=== PATIENT | female | born 1975 | race Caucasian/White ===

== ENCOUNTER → 2017-10-14 | Outpatient (CLI) | payer OTHER ==
--- NOTE | 2017-10-15 07:59 | MM ---
Reason for exam: screening (asymptomatic). Last mammogram was performed 1 year ago. History: Patient is nulliparous. Family history of breast cancer in mother at age 62. Taking hormonal contraceptives for 2 years. Physical Findings: A clinical breast exam by your physician is recommended on an annual basis and results should be correlated with mammographic findings. MG Screening Mammo w CAD Bilateral CC and MLO view(s) were taken. Prior study comparison: October 02, 2016, bilateral MG screening mammo w CAD. July 02, 2015, bilateral MG screening mammo w CAD. The breast tissue is heterogeneously dense. This may lower the sensitivity of mammography. No significant changes when compared with prior studies. ASSESSMENT: Benign, BI-RAD 2 RECOMMENDATION: Routine screening mammogram of both breasts in 1 year.
== END | disposition home or self-care (01) ==
LOC: RADMAMWWP 08:28
PROVIDERS: ATTEND Obstetrics & Gynecology
DX: Z12.31 Encounter for screening mammogram for malignant neoplasm of breast (principal)
CPT/HCPCS: 77067

== ENCOUNTER 2018-05-06 07:59 | Inpatient (IN) | payer OTHER ==
[2018-05-06 08:25] LABS: Glucose,Whole Blood 380 mg/dL (75-99)
[2018-05-06] MEDS ORDERED: PANTOPRAZOLE 40 MG/10 ML VIAL IVP STA (08:25)
[2018-05-06] MEDS ORDERED: SODIUM CHLORIDE 0.9% 1,000 ML IV STA ×2 (08:25)
[2018-05-06] MEDS ORDERED: ONDANSETRON 4 MG/2 ML VIAL IVP STA (08:25)
[2018-05-06] MEDS ORDERED: INSULIN REGULAR 100 UNIT/ML VIAL IV ONE (08:28)
--- NOTE | 2018-05-06 08:28 | ED ---
Nausea/Vomiting/Diarrhea HPI - General Source: patient, RN notes reviewed, old records reviewed Mode of arrival: ambulatory Limitations: no limitations <Doretha Godinez - Last Filed: 05/06/18 09:58> <Julián Rodrigues - Last Filed: 05/06/18 10:06> - General Chief complaint: Nausea/Vomiting/Diarrhea Stated complaint: vomiting Time Seen by Provider: 05/06/18 08:20 - History of Present Illness Initial comments: This is a 43-year-old female presents emergency Department chief complaint of nausea and vomiting onset at 1:00 this morning. Patient reports that she was feeling well prior to this onset. Patient denies any abdominal pain. She does have some acid reflux pain due to the amount of vomiting. Patient is a type I diabetic, on insulin pump. She has not had her medications yet today due to nausea and vomiting. Patient states that she's had no changes in stools or urine. She denies any specific abdominal pain. Patient states that she had admitted the past for DKA when this occurred. Patient states that she try to manage her symptoms prior to that starting. (Doretha Godinez) - Related Data Home Medications Medication Instructions Recorded Confirmed Escitalopram [Lexapro] 10 mg PO DAILY 09/01/16 05/06/18 INSULIN LISPRO (humaLOG) [humaLOG] See Protocol SQ-PUMP CONTINUOUS 09/01/16 Norethindrone-E.estradiol-Iron 1 tab PO DAILY 09/01/16 05/06/18 [Minastrin 24 Fe Chewable Tab] Atorvastatin Calcium [Lipitor] 10 mg PO HS 11/06/17 05/06/18 Lisinopril [Prinivil] 5 mg PO DAILY 05/06/18 05/06/18 Allergies Allergy/AdvReac Type Severity Reaction Status Date / Time No Known Allergies Allergy Verified 05/06/18 08:50 Review of Systems ROS Other: All systems not noted in ROS Statement are negative. <Doretha Godinez - Last Filed: 05/06/18 09:58> ROS Other: All systems not noted in ROS Statement are negative. <Julián Rodrigues - Last Filed: 05/06/18 10:06> ROS Statement: Those systems with pertinent positive or pertinent negative responses have been documented in the HPI. Past Medical History Past Medical History: Asthma, Diabetes Mellitus Additional Past Medical History / Comment(s): insulin pump History of Any Multi-Drug Resistant Organisms: None Reported Past Surgical History: No Surgical Hx Reported Past Anesthesia/Blood Transfusion Reactions: No Reported Reaction Past Psychological History: Anxiety, Depression Smoking Status: Never smoker Past Alcohol Use History: None Reported Past Drug Use History: None Reported <Doretha Godinez - Last Filed: 05/06/18 09:58> General Exam Limitations: no limitations General appearance: alert, in no apparent distress Head exam: Present: atraumatic, normocephalic, normal inspection Eye exam: Present: normal appearance, PERRL, EOMI. Absent: scleral icterus, conjunctival injection, periorbital swelling ENT exam: Present: normal exam, mucous membranes moist Neck exam: Present: normal inspection. Absent: tenderness, meningismus, lymphadenopathy Respiratory exam: Present: normal lung sounds bilaterally. Absent: respiratory distress, wheezes, rales, rhonchi, stridor Cardiovascular Exam: Present: regular rate, normal rhythm, normal heart sounds. Absent: systolic murmur, diastolic murmur, rubs, gallop, clicks GI/Abdominal exam: Present: soft, normal bowel sounds. Absent: distended, tenderness, guarding, rebound, rigid Extremities exam: Present: normal inspection, full ROM, normal capillary refill. Absent: tenderness, pedal edema, joint swelling, calf tenderness Back exam: Present: normal inspection Neurological exam: Present: alert, oriented X3, CN II-XII intact Psychiatric exam: Present: normal affect, normal mood Skin exam: Present: warm, dry, intact, normal color. Absent: rash <Doretha Godinez - Last Filed: 05/06/18 09:58> <Julián Rodrigues - Last Filed: 05/06/18 10:06> - General Exam Comments Initial Comments: Pleasant 43 year old female, no acute distress. (Doretha Godinez) Vital Signs 05/06/18 05/06/18 08:13 09:17 Temperature 98.1 F 98.1 F Pulse Rate 128 H 100 Respiratory 20 16 Rate Blood Pressure 147/90 126/61 O2 Sat by Pulse 99 100 Oximetry Medical Decision Making - Lab Data Result diagrams: 05/06/18 08:35 05/06/18 08:35 <Doretha Godinez - Last Filed: 05/06/18 09:58> - Lab Data Result diagrams: 05/06/18 08:35 05/06/18 08:35 <Julián Rodrigues - Last Filed: 05/06/18 10:06> - Medical Decision Making This is a 43-year-old female with chief complaint of vomiting onset at 1 AM. No abdominal pain. Patient states diabetic. Concern for DKA. At this time Patient is in diabetic ketoacidosis. Patient's CO2 was 8. Glucose was 380 upon arrival. Given an initial insulin bolus. Patient's acetone positive for plus ketones and glucose. Patient was given 1 L bolus at this time. At this time we'll start the Patient on take a protocol with insulin bolus. She states that she's feeling better after initial dose of fluids at this time. I discussed we'll keep her for further evaluation. Patient agrees to admission. ( Doretha Godinez) Patient reevaluated by myself, Dr. Rodrigues. Patient resting comfortably in bed. Abdomen soft and nontender. Patient is tolerating ice chips. Patient updated on results and plan. Case was also discussed with Dr. Lou, covering for Dr. ceballos, who will admit for Dr. Shelton. I reviewed and agree with PA findings. This includes all diagnostic interpretations and treatment plan. (Julián Rodrigues) - Lab Data Lab Results 05/06/18 05/06/18 05/06/18 Range/Units 08:23 08:35 08:35 WBC 16.1 H (3.8-10.6) k/uL RBC 5.24 (3.80-5.40) m/uL Hgb 14.2 (11.4-16.0) gm/dL Hct 46.6 H (34.0-46.0) % MCV 88.8 (80.0-100.0) fL MCH 27.0 (25.0-35.0) pg MCHC 30.4 L (31.0-37.0) g/dL RDW 12.8 (11.5-15.5) % Plt Count 377 (150-450) k/uL Neutrophils % 95 % Lymphocytes % 3 % Monocytes % 1 % Eosinophils % 0 % Basophils % 0 % Neutrophils # 15.3 H (1.3-7.7) k/uL Lymphocytes # 0.5 L (1.0-4.8) k/uL Monocytes # 0.1 (0-1.0) k/uL Eosinophils # 0.0 (0-0.7) k/uL Basophils # 0.0 (0-0.2) k/uL Hypochromasia Moderate Sodium 140 (137-145) mmol/L Potassium 5.1 (3.5-5.1) mmol/L Chloride 106 (98-107) mmol/L Carbon Dioxide 8 L* (22-30) mmol/L Anion Gap 26 mmol/L BUN 14 (7-17) mg/dL Creatinine 0.81 (0.52-1.04) mg/dL Est GFR (CKD-EPI)AfAm >90 (>60 ml/min/1.73 sqM) Est GFR (CKD-EPI)NonAf 90 (>60 ml/min/1.73 sqM) Glucose 451 H* (74-99) mg/dL POC Glucose (mg/dL) 380 H (75-99) mg/dL POC Glu Property Valuer ID Petitpren, Cris Calcium 9.1 (8.4-10.2) mg/dL Total Bilirubin 1.0 (0.2-1.3) mg/dL AST 31 (14-36) U/L ALT 38 (9-52) U/L Alkaline Phosphatase 93 (38-126) U/L Total Protein 8.0 (6.3-8.2) g/dL Albumin 5.0 (3.5-5.0) g/dL Amylase 48 (30-110) U/L Lipase 46 (23-300) U/L Urine Color Urine Appearance (Clear) Urine pH (5.0-8.0) Ur Specific Busy (1.001-1.035) Urine Protein (Negative) Urine Glucose (UA) (Negative) Urine Ketones (Negative) Urine Blood (Negative) Urine Nitrite (Negative) Urine Bilirubin (Negative) Urine Urobilinogen (<2.0) mg/dL Ur Leukocyte Esterase (Negative) Acetone, Qual Positive (Negative) 05/06/18 05/06/18 Range/Units 08:35 09:46 WBC (3.8-10.6) k/uL RBC (3.80-5.40) m/uL Hgb (11.4-16.0) gm/dL Hct (34.0-46.0) % MCV (80.0-100.0) fL MCH (25.0-35.0) pg MCHC (31.0-37.0) g/dL RDW (11.5-15.5) % Plt Count (150-450) k/uL Neutrophils % % Lymphocytes % % Monocytes % % Eosinophils % % Basophils % % Neutrophils # (1.3-7.7) k/uL Lymphocytes # (1.0-4.8) k/uL Monocytes # (0-1.0) k/uL Eosinophils # (0-0.7) k/uL Basophils # (0-0.2) k/uL Hypochromasia Sodium (137-145) mmol/L Potassium (3.5-5.1) mmol/L Chloride (98-107) mmol/L Carbon Dioxide (22-30) mmol/L Anion Gap mmol/L BUN (7-17) mg/dL Creatinine (0.52-1.04) mg/dL Est GFR (CKD-EPI)AfAm (>60 ml/min/1.73 sqM) Est GFR (CKD-EPI)NonAf (>60 ml/min/1.73 sqM) Glucose (74-99) mg/dL POC Glucose (mg/dL) 349 H (75-99) mg/dL POC Glu Property Valuer ID Cris Alcaraz Calcium (8.4-10.2) mg/dL Total Bilirubin (0.2-1.3) mg/dL AST (14-36) U/L ALT (9-52) U/L Alkaline Phosphatase (38-126) U/L Total Protein (6.3-8.2) g/dL Albumin (3.5-5.0) g/dL Amylase (30-110) U/L Lipase (23-300) U/L Urine Color Colorless Urine Appearance Clear (Clear) Urine pH 5.0 (5.0-8.0) Ur Specific Busy 1.019 (1.001-1.035) Urine Protein Trace H (Negative) Urine Glucose (UA) 4+ H (Negative) Urine Ketones 4+ H (Negative) Urine Blood Negative (Negative) Urine Nitrite Negative (Negative) Urine Bilirubin Negative (Negative) Urine Urobilinogen <2.0 (<2.0) mg/dL Ur Leukocyte Esterase Negative (Negative) Acetone, Qual (Negative) Disposition Is patient prescribed a controlled substance at d/c from ED?: No Time of Disposition: 09:59 <Doretha Godinez - Last Filed: 05/06/18 09:58> <Julián Rodrigues - Last Filed: 05/06/18 10:06> Clinical Impression: DKA (diabetic ketoacidoses) Disposition: ADMITTED IP TO THIS HOSP Condition: Stable Referrals: Braulio Wills MD [Primary Care Provider] - 1-2 days
[2018-05-06 08:55] LABS: Appearance,Urine Clear (Clear); Bilirubin,Urine Negative (Negative); Blood,Urine Negative (Negative); Color,Urine Colorless; Glucose,Urine (UA) 4+ (Negative); Leukocyte Esterase,Urine Negative (Negative); Nitrite,Urine Negative (Negative); Protein,Urine Trace (Negative); Specific Gravity,Urine 1.019 (1.001-1.035); Urobilinogen,Urine <2.0 mg/dL (<2.0)
[2018-05-06 09:11] LABS: ALT 38 U/L (9-52); AST 31 U/L (14-36); Alkaline Phosphatase 93 U/L (38-126); Amylase 48 U/L (30-110); Blood Urea Nitrogen 14 mg/dL (7-17); Calcium 9.1 mg/dL (8.4-10.2); Chloride 106 mmol/L (98-107); Lipase 46 U/L (23-300); Potassium 5.1 mmol/L (3.5-5.1); Sodium 140 mmol/L (137-145)
[2018-05-06 09:15] LABS: Basophils % (A) 0 %; Eosinophils % (A) 0 %; HCT 46.6 % (34.0-46.0); HGB 14.2 gm/dL (11.4-16.0); Hypochromasia Moderate; Lymphocytes # (A) 0.5 k/uL (1.0-4.8); Lymphocytes % (A) 3 %; MCHC 30.4 g/dL (31.0-37.0); MCV 88.8 fL (80.0-100.0); Mean Platelet Volume 7.3; Monocytes # (A) 0.1 k/uL (0-1.0); Monocytes % (A) 1 %; Neutrophils # (A) 15.3 k/uL (1.3-7.7); Neutrophils % (A) 95 %; Platelet Count 377 k/uL (150-450); RBC 5.24 m/uL (3.80-5.40); RDW 12.8 % (11.5-15.5); WBC 16.1 k/uL (3.8-10.6)
[2018-05-06 09:16] LABS: Anion Gap 26 mmol/L
[2018-05-06 09:43] LABS: Carbon Dioxide 8 mmol/L (22-30); Glucose 451 mg/dL (74-99); Ketones,Urine 4+ (Negative)
[2018-05-06 09:47] LABS: Glucose,Whole Blood 349 mg/dL (75-99)
[2018-05-06] MEDS: INSULIN REGULAR 100 UNIT in SODIUM CHLORIDE 0.9% 100 ML IV SCH ×2 (09:54→17:13)
[2018-05-06] MEDS: SODIUM CHLORIDE 0.9% 1,000 ML IV SCH ×2 (09:57→14:00)
[2018-05-06] MEDS ORDERED: ONDANSETRON 4 MG in SODIUM CHLORIDE 0.9% 50 ML IVPB PRN (10:32)
[2018-05-06] MEDS ORDERED: Magnesium Replacement Protocol 1 EACH MISC MISCELLANE PRN (10:33)
[2018-05-06] MEDS ORDERED: Potassium Replacement Protocol 1 EACH MISC MISCELLANE PRN (10:33)
[2018-05-06] MEDS ORDERED: ONDANSETRON 4 MG/2 ML VIAL IVP PRN (10:38)
--- NOTE | 2018-05-06 10:55 | XR ---
EXAMINATION TYPE: XR chest 2V DATE OF EXAM: 05/06/2018 COMPARISON: 09/01/2016 TECHNIQUE: PA and lateral views submitted. HISTORY: Leukocytosis FINDINGS: No pleural effusion or pneumothorax. No overt failure. Hypertrophic and degenerative change of the sp ine. Patchy perihilar changes are seen. IMPRESSION: 1. Patchy perihilar changes may been the basis of a pneumonitis. Correlate clinically.
[2018-05-06 11:01] LABS: ABG Base Excess -21.8 mmol/L; ABG Oxygen Saturation 97.4 % (94-97); ABG PO2 104 mmHg (83-108); ABG TCO2 8 mmol/L (19-24)
--- NOTE | 2018-05-06 11:01 | XR ---
EXAMINATION TYPE: XR KUB DATE OF EXAM: 05/06/2018 COMPARISON: 09/01/2016 HISTORY: leukoctyosis TECHNIQUE: One view abdominal series FINDINGS: The osseous structures are intact. The bowel gas pattern is nonspecific. Lung bases are clear. IMPRESSION: 1. Nonspecific abdomen.
[2018-05-06 11:06] LABS: ABG PH 7.16 (7.35-7.45)
[2018-05-06 11:07] LABS: Glucose,Whole Blood 280 mg/dL (75-99)
[2018-05-06 11:07] LABS: ABG HCO3 7 mmol/L (21-25); ABG PCO2 20 mmHg (35-45)
[2018-05-06] MEDS: D5-0.45% NACL WITH KCL 20MEQ/L 1,000 ML IV SCH ×2 (11:26→19:03)
--- NOTE | 2018-05-06 12:00 | P.HPIM ---
History of Present Illness H&P Date: 05/06/18 Chief Complaint: Nausea and vomiting and elevated blood sugars The patient is a 43-year-old female with a past medical history of insulin-dependent type 1 diabetes who is followed by Dr. Wills in clinic who presents to the ER via private vehicle we'll with complaints of nausea vomiting. Apparently the patient make an having symptoms of nausea prior to dinner with the last evening, during the day she had noticed increased blood sugars in the 300 range, which is usually typical for her. Throughout the night her nausea worsened and she began having episodes of non-bloody bilious emesis and was not able to keep down any liquids or her medications. She denies any abdominal pain, chest pain shortness of breath cough, diarrhea, constipation, dysuria, or frequency. The patient then subsequently presented here after realizing that her symptoms were similar to her last presentation for DKA in August 2016. She reports her last A1c at around 8.3. The patient otherwise has no other complaints. In the ER the patient received a comprehensive workup, with grossly abnormal labs leukocytosis of 16.6, blood sugar of 451, serum bicarb of 8, and a urinalysis suggesting ketonuria 4+. ABG with a pH of 7.16/pCO2 of 20/pO2 104/ HCO 7 with positive acetone. She was given a bolus of normal saline and started on insulin drip per protocol and recommended for admission for DKA Review of Systems All other 12 point review systems negative except per HPI Past Medical History Past Medical History: Asthma, Diabetes Mellitus Additional Past Medical History / Comment(s): insulin pump History of Any Multi-Drug Resistant Organisms: None Reported Past Surgical History: No Surgical Hx Reported Past Anesthesia/Blood Transfusion Reactions: No Reported Reaction Past Psychological History: Anxiety, Depression Smoking Status: Never smoker Past Alcohol Use History: None Reported Past Drug Use History: None Reported Medications and Allergies Home Medications Medication Instructions Recorded Confirmed Type Escitalopram [Lexapro] 10 mg PO DAILY 09/01/16 05/06/18 History INSULIN LISPRO (humaLOG) [humaLOG] See Protocol SQ-PUMP CONTINUOUS 09/01/16 History Norethindrone-E.estradiol-Iron 1 tab PO DAILY 09/01/16 05/06/18 History [Minastrin 24 Fe Chewable Tab] Atorvastatin Calcium [Lipitor] 10 mg PO HS 11/06/17 05/06/18 History Lisinopril [Prinivil] 5 mg PO DAILY 05/06/18 05/06/18 History Allergies Allergy/AdvReac Type Severity Reaction Status Date / Time No Known Allergies Allergy Verified 05/06/18 08:50 Physical Exam Vitals: Vital Signs Temp Pulse Resp BP Pulse Ox 05/06/18 10:17 99 18 122/66 100 05/06/18 09:17 98.1 F 100 16 126/61 100 05/06/18 08:13 98.1 F 128 H 20 147/90 99 Intake and Output 05/05/18 05/06/18 05/06/18 22:59 06:59 14:59 Other: Weight 78.018 kg Constitutional: No acute distress, conversant, pleasant Eyes: Anicteric sclerae, moist conjunctiva, no lid-lag, PERRLA ENMT: NC/AT,Oropharynx clear, no erythema, exudates, dry mucous membranes Neck:Supple, FROM, no masses, or JVD, No carotid bruits; No thyromegaly Lungs: Clear to auscultation, Clear to percussion, Normal respiratory effort, no accessory muscle use Cardiovascular: Tachycardic regular rhythm, no murmurs rubs or gallops no peripheral edema Abdominal: Soft Nontender, nom distended, no guarding, no rebound or rigidity, Normoactive bowel sounds No hepatomegaly, No splenomegaly, No palpable mass No abdominal wall hernia noted Skin: Normal temperature, tone, texture, turgor, No induration No subcutaneous nodules, No rash, lesions, No ulcers Extremities:No digital cyanosis No clubbing, Pedal pulses intact and symmetrical Radial pulses intact and symmetrical Normal gait and station, No calf tenderness Psychiatric: Alert and oriented to person, place and time, Appropriate affect Intact judgement Neuro: Muscles Strength 5/5 in all 4 extremities, Sensation to light touch grossly present throughout, Cranial nerves II-XII grossly intact. No focal sensory deficits Results CBC & Chem 7: 05/06/18 08:35 05/06/18 08:35 Labs: Abnormal Lab Results - Last 24 Hours (Table) 05/06/18 05/06/18 05/06/18 Range/Units 08:23 08:35 08:35 WBC 16.1 H (3.8-10.6) k/uL Hct 46.6 H (34.0-46.0) % MCHC 30.4 L (31.0-37.0) g/dL Neutrophils # 15.3 H (1.3-7.7) k/uL Lymphocytes # 0.5 L (1.0-4.8) k/uL ABG pH (7.35-7.45) ABG pCO2 (35-45) mmHg ABG HCO3 (21-25) mmol/L ABG Total CO2 (19-24) mmol/L ABG O2 Saturation (94-97) % Carbon Dioxide 8 L* (22-30) mmol/L Glucose 451 H* (74-99) mg/dL POC Glucose (mg/dL) 380 H (75-99) mg/dL Urine Protein (Negative) Urine Glucose (UA) (Negative) Urine Ketones (Negative) 05/06/18 05/06/18 05/06/18 Range/Units 08:35 09:46 10:45 WBC (3.8-10.6) k/uL Hct (34.0-46.0) % MCHC (31.0-37.0) g/dL Neutrophils # (1.3-7.7) k/uL Lymphocytes # (1.0-4.8) k/uL ABG pH 7.16 L* (7.35-7.45) ABG pCO2 20 L* (35-45) mmHg ABG HCO3 7 L* (21-25) mmol/L ABG Total CO2 8 L (19-24) mmol/L ABG O2 Saturation 97.4 H (94-97) % Carbon Dioxide (22-30) mmol/L Glucose (74-99) mg/dL POC Glucose (mg/dL) 349 H (75-99) mg/dL Urine Protein Trace H (Negative) Urine Glucose (UA) 4+ H (Negative) Urine Ketones 4+ H (Negative) 05/06/18 Range/Units 11:06 WBC (3.8-10.6) k/uL Hct (34.0-46.0) % MCHC (31.0-37.0) g/dL Neutrophils # (1.3-7.7) k/uL Lymphocytes # (1.0-4.8) k/uL ABG pH (7.35-7.45) ABG pCO2 (35-45) mmHg ABG HCO3 (21-25) mmol/L ABG Total CO2 (19-24) mmol/L ABG O2 Saturation (94-97) % Carbon Dioxide (22-30) mmol/L Glucose (74-99) mg/dL POC Glucose (mg/dL) 280 H (75-99) mg/dL Urine Protein (Negative) Urine Glucose (UA) (Negative) Urine Ketones (Negative) Assessment and Plan (1) DKA (diabetic ketoacidoses) Current Visit: Yes Status: Acute Code(s): E13.10 - OTH DIABETES MELLITUS WITH KETOACIDOSIS WITHOUT COMA SNOMED Code(s): 375227006 (2) Increased anion gap metabolic acidosis Current Visit: Yes Status: Acute Code(s): E87.2 - ACIDOSIS SNOMED Code(s) : 11776536 (3) Intractable nausea and vomiting Current Visit: Yes Status: Acute Code(s): R11.2 - NAUSEA WITH VOMITING, UNSPECIFIED SNOMED Code(s): 036388545 (4) Leukocytosis Current Visit: Yes Status: Acute Code(s): D72.829 - ELEVATED WHITE BLOOD CELL COUNT, UNSPECIFIED SNOMED Code(s): 858718804 (5) Essential hypertension Current Visit: Yes Status: Acute Code(s): I10 - ESSENTIAL (PRIMARY) HYPERTENSION SNOMED Code(s): 74488019 Plan: The patient is admitted [facility] with DKA anticipate a greater than 2 midnight stay secondary to DKA she started on, in house protocol with IV fluids and insulin drip. We'll continue to check her electrolytes for resolution of anion gap. The precipitant of DKA unknown at this time we'll further workup with a chest x-ray KUB, urinalysis negative for any suggestion of UTI. We'll check her A1c, Consult diabetic education. We'll treat symptomatically with Zofran for her nausea And continue to hold her other medications that she is currently nothing by mouth. Patient does have a leukocytosis that is likely reactive secondary to her DKA , she is afebrile , will check a blood culture and continue to follow her clinical course.
[2018-05-06] MEDS ORDERED: METOCLOPRAMIDE 5 MG/ML 2 ML VIAL IVP PRN (12:06)
[2018-05-06 12:21] LABS: Glucose,Whole Blood 237 mg/dL (75-99)
[2018-05-06 12:58] LABS: Anion Gap 20 mmol/L; Blood Urea Nitrogen 14 mg/dL (7-17); Chloride 111 mmol/L (98-107); Glucose 241 mg/dL (74-99); Potassium 4.9 mmol/L (3.5-5.1); Sodium 140 mmol/L (137-145)
[2018-05-06 13:10] LABS: Glucose,Whole Blood 252 mg/dL (75-99)
[2018-05-06 13:18] LABS: Carbon Dioxide 9 mmol/L (22-30)
[2018-05-06 14:25] LABS: Glucose,Whole Blood 217 mg/dL (75-99)
[2018-05-06 15:25] LABS: Glucose,Whole Blood 221 mg/dL (75-99)
[2018-05-06 16:13] LABS: Glucose,Whole Blood 185 mg/dL (75-99)
[2018-05-06 16:39] LABS: Anion Gap 13 mmol/L; Blood Urea Nitrogen 14 mg/dL (7-17); Carbon Dioxide 14 mmol/L (22-30); Chloride 111 mmol/L (98-107); Glucose 168 mg/dL (74-99); Sodium 138 mmol/L (137-145)
[2018-05-06 17:29] LABS: Glucose,Whole Blood 148 mg/dL (75-99)
[2018-05-06 18:18] LABS: Glucose,Whole Blood 126 mg/dL (75-99)
[2018-05-06 19:07] LABS: Glucose,Whole Blood 108 mg/dL (75-99)
[2018-05-06 20:23] LABS: Anion Gap 8 mmol/L; Blood Urea Nitrogen 14 mg/dL (7-17); Carbon Dioxide 17 mmol/L (22-30); Chloride 110 mmol/L (98-107); Glucose 126 mg/dL (74-99); Potassium 4.7 mmol/L (3.5-5.1); Sodium 135 mmol/L (137-145)
[2018-05-06 20:40] LABS: Hemoglobin A1C 8.4 % (4.0-6.0)
[2018-05-06 20:55] LABS: Glucose,Whole Blood 145 mg/dL (75-99)
[2018-05-06] MEDS ORDERED: INSULIN NPH 300 UNIT/3 ML VIAL SQ ONE (21:05)
[2018-05-06] MEDS ORDERED: INSULIN DETEMIR 100 UNIT/ML 10 ML VIAL SQ SCH (21:45)
[2018-05-07 00:52] VITALS: RESP 16
[2018-05-07 00:56] LABS: Anion Gap 13 mmol/L; Blood Urea Nitrogen 16 mg/dL (7-17); Carbon Dioxide 15 mmol/L (22-30); Chloride 105 mmol/L (98-107); Glucose 355 mg/dL (74-99); Potassium 5.1 mmol/L (3.5-5.1); Sodium 133 mmol/L (137-145)
[2018-05-07 05:46] LABS: Glucose,Whole Blood 242 mg/dL (75-99)
[2018-05-07 06:41] LABS: Anion Gap 9 mmol/L; Blood Urea Nitrogen 16 mg/dL (7-17); Carbon Dioxide 17 mmol/L (22-30); Chloride 110 mmol/L (98-107); Glucose 260 mg/dL (74-99); Potassium 4.9 mmol/L (3.5-5.1); Sodium 136 mmol/L (137-145)
[2018-05-07] MEDS: INSULIN ASPART 100 UNIT/ML 1 ML 10 ML VIAL SQ SCH ×4 (07:13→12:19)
[2018-05-07] MEDS ORDERED: PANTOPRAZOLE 40 MG/10 ML VIAL IVP SCH (09:00)
[2018-05-07 09:23] VITALS: TEMP 98.2
[2018-05-07 11:30] LABS: Glucose,Whole Blood 106 mg/dL (75-99)
[2018-05-07 11:45] VITALS: BMI 30.1
[2018-05-07 12:44] VITALS: BP 128/76; PULSE 95
--- NOTE | 2018-05-07 14:01 | P.DS ---
Providers Date of admission: 05/06/18 10:06 Expected date of discharge: 05/07/18 Attending physician: tOto Lou MD Primary care physician: Braulio Wills - Discharge Diagnosis(es) (1) DKA (diabetic ketoacidoses) Current Visit: Yes Status: Acute (2) Increased anion gap metabolic acidosis Current Visit: Yes Status: Acute (3) Intractable nausea and vomiting Current Visit: Yes Status: Acute (4) Leukocytosis Current Visit: Yes Status: Acute (5) Essential hypertension Current Visit: Yes Status: Acute Hospital Course: The patient is a 43-year-old female that was admitted with DKA precipitant unknown after procedure she presented with intractable nausea and vomiting and elevated blood sugars, ketonuria, and anion gap metabolic acidosis. She was started on in house DKA protocol and started on fluids, with insulin drip. She was treated supportively with Reglan and Zofran for nausea and vomiting. She had a noted leukocytosis that was an acute phase reactant which resolved without need for antibiotics, the patient remained afebrile throughout her hospitalization. Her urinalysis was negative for any suggestion of an UTI, chest x-ray suggested possible pneumonitis over the patient was asymptomatic, and a KUB of the abdomen showed was otherwise normal. When her anion gap resolved she was transitioned back to her insulin pump, on day of discharge the patient felt great denied any nausea and vomiting and was tolerating a diabetic diet without any significant nausea. She was subsequently discharged home and told to follow-up with her PCP Dr. Wills and she has an appointment in 7 days. Of note her hemoglobin A1c was 8.3. She was subsequently discharged home in stable condition. This discharge process took approximately 35 minutes Patient Condition at Discharge: Stable Plan - Discharge Summary Discharge Rx Participant: Yes New Discharge Prescriptions: Continue INSULIN LISPRO (humaLOG) [humaLOG] See Protocol SQ-PUMP CONTINUOUS Norethindrone-E.estradiol-Iron [Minastrin 24 Fe Chewable Tab] 1 tab PO DAILY Escitalopram [Lexapro] 10 mg PO DAILY Atorvastatin Calcium [Lipitor] 10 mg PO HS Lisinopril [Prinivil] 5 mg PO DAILY Discharge Medication List Escitalopram [Lexapro] 10 mg PO DAILY 09/01/16 [History] INSULIN LISPRO (humaLOG) [humaLOG] See Protocol SQ-PUMP CONTINUOUS 09/01/16 [ History] Norethindrone-E.estradiol-Iron [Minastrin 24 Fe Chewable Tab] 1 tab PO DAILY [History] Atorvastatin Calcium [Lipitor] 10 mg PO HS 11/06/17 [History] Lisinopril [Prinivil] 5 mg PO DAILY 05/06/18 [History] Follow up Appointment(s)/Referral(s): Braulio Wills MD [Primary Care Provider] - 05/14/18 5:00 pm (Thursday) Discharge Disposition: HOME SELF-CARE
[2018-05-08] MEDS ORDERED: PANTOPRAZOLE 40 MG TABLET PO SCH (09:00)
== END 2018-05-07 15:24 | disposition home or self-care (01) | DRG 639 ==
LOC: EC 07:59 → 6SEL 10:06
PROVIDERS: ADMIT Family Medicine; ATTEND Family Medicine
DX: E10.10 Type 1 diabetes mellitus with ketoacidosis without coma (principal); D72.829 Elevated white blood cell count, unspecified; F32.9 Major depressive disorder, single episode, unspecified; F41.9 Anxiety disorder, unspecified; I10 Essential (primary) hypertension; Z79.4 Long term (current) use of insulin; Z79.899 Other long term (current) drug therapy; Z96.41 Presence of insulin pump (external) (internal)
CPT/HCPCS: 36415; 36600; 71046; 74018; 80051; 80053; 81003; 82009; 82150; 82565; 82805; 82947; 83036; 83690; 84484; 84520; 85025; 87040; 96361; 96374; 96375; 99285

== ENCOUNTER → 2019-05-24 | Outpatient (CLI) | payer OTHER ==
--- NOTE | 2019-05-26 12:21 | MM ---
Reason for exam: screening (asymptomatic). Last mammogram was performed 1 year and 7 months ago. History: Patient is nulliparous. Family history of breast cancer in mother at age 62. Taking hormonal contraceptives for 2 years. Physical Findings: A clinical breast exam by your physician is recommended on an annual basis and results should be correlated with mammographic findings. MG Screening Mammo w CAD Bilateral CC and MLO view(s) were taken. Prior study comparison: October 14, 2017, bilateral MG screening mammo w CAD. October 02, 2016, bilateral MG screening mammo w CAD. The breast tissue is heterogeneously dense. This may lower the sensitivity of mammography. Benign appearing bilateral calcifications. No significant changes when compared with prior studies. ASSESSMENT: Benign, BI-RAD 2 RECOMMENDATION: Routine screening mammogram of both breasts in 1 year.
== END | disposition home or self-care (01) ==
LOC: RADMAMWWP 12:56
PROVIDERS: ATTEND Obstetrics & Gynecology
DX: Z12.31 Encounter for screening mammogram for malignant neoplasm of breast (principal)
CPT/HCPCS: 77067

== ENCOUNTER → 2020-09-04 | Outpatient (CLI) | payer OTHER ==
--- NOTE | 2020-09-05 14:28 | MM ---
Reason for exam: screening (asymptomatic). Last mammogram was performed 1 year and 3 months ago. History: Family history of breast cancer in mother at age 62. Taking hormonal contraceptives for 2 years. Physical Findings: A clinical breast exam by your physician is recommended on an annual basis and results should be correlated with mammographic findings. MG Screening Mammo w CAD Bilateral CC and MLO view(s) were taken. Prior study comparison: May 24, 2019, bilateral MG screening mammo w CAD. October 14, 2017, bilateral MG screening mammo w CAD. The breast tissue is heterogeneously dense. This may lower the sensitivity of mammography. Focal asymmetry 4cm from nipple right anterior middle depth inner aspect. This finding is changed when compared with previous exams. ASSESSMENT: Incomplete: need additional imaging evaluation, BI-RAD 0 RECOMMENDATION: Special view mammogram of the right breast. If lesion persists on supplemental views, image directed ultrasound is recommended. [facility] will attempt to contact patient to return for supplemental views and ultrasound if indicated.
== END | disposition home or self-care (01) ==
LOC: RADMAMWWP 15:11
PROVIDERS: ATTEND Obstetrics & Gynecology
DX: Z12.31 Encounter for screening mammogram for malignant neoplasm of breast (principal)
CPT/HCPCS: 77067

== ENCOUNTER → 2020-09-12 | Outpatient (CLI) | payer OTHER ==
--- NOTE | 2020-09-12 08:43 | MM ---
Reason for exam: additional evaluation requested from abnormal screening. Last mammogram was performed less than 1 month ago. History: Family history of breast cancer in mother at age 62. Taking hormonal contraceptives for 2 years. Physical Findings: Nurse did not find any significant physical abnormalities on exam. MG Work Up Mamm w CAD RT Spot compression CC and LM view(s) were taken of the right breast. Prior study comparison: September 04, 2020, bilateral MG screening mammo w CAD. May 24, 2019, bilateral MG screening mammo w CAD. The breast tissue is heterogeneously dense. This may lower the sensitivity of mammography. There is no discrete abnormality. These results were verbally communicated with the patient and result sheet given to the patient on 09/12/20. ASSESSMENT: Benign, BI-RAD 2 RECOMMENDATION: Return to routine screening mammogram schedule for both breasts.
== END | disposition home or self-care (01) ==
LOC: RADMAMWWP 07:29
PROVIDERS: ATTEND Obstetrics & Gynecology
DX: R92.8 Other abnormal and inconclusive findings on diagnostic imaging of breast (principal)
CPT/HCPCS: 77065